=== PATIENT | male | born 1980 | race Caucasian/White ===

== ENCOUNTER 2022-10-30 11:11 | Emergency (ER) | payer SELFPAY ==
[2022-10-30] MEDS ORDERED: Dexamethasone 10 MG/ML SDV IM STA (11:31)
[2022-10-30] MEDS ORDERED: Acetaminophen/oxyCODONE 325-5 MG Tab PO ONE (11:31)
[2022-10-30] MEDS ORDERED: Ketorolac 30 MG/ML SDV IM ONE (11:31)
== END 2022-10-30 12:57 | disposition home or self-care (01) ==
LOC: MW.ED 11:11
DX: M54.50 Low back pain, unspecified (principal)
CPT/HCPCS: 72131; 96372; 99283; A9270; J1100; J1885

== ENCOUNTER 2024-09-02 10:44 | Emergency (ER) | payer MEDICAID ==
[2024-09-02] MEDS: Acetaminophen/HYDROcodone 325-5 MG Tab PO ONE (11:08)
== END 2024-09-02 11:49 | disposition home or self-care (01) ==
LOC: MW.ED 10:44
DX: T26.42XA Burn of left eye and adnexa, part unspecified, initial encounter (principal); T26.41XA Burn of right eye and adnexa, part unspecified, initial encounter; Z75.8 Other problems related to medical facilities and other health care; W89.0XXA Exposure to welding light (arc), initial encounter
CPT/HCPCS: 99283; A9270